=== PATIENT | male | born 1965 | race Caucasian/White ===

== ENCOUNTER 2016-06-27 17:37 | Emergency (ER) | payer OTHER ==
[2016-06-27 18:28] LABS: BASOPHIL 0.1 % (0-2); EOSINOPHIL 0 % (0-5); HCT 40.6 % (42.0-52.0); HGB 14.4 g/dl (13.2-18.0); LYMPHOCYTE 6.9 % (15-48); MCH 28.7 pg (25.0-31.0); MCHC 35.5 g/dL (32.0-36.0); MONOCYTE 8.2 % (0-12); MPV 10.5 fL (6.0-9.5); NEUTROPHIL 84.8 % (41-80); PLT 282 K/uL (150-400); RBC 5.01 M/uL (4.70-6.00); WBC 11.7 K/uL (4.0-10.5)
[2016-06-27 18:46] LABS: INR 1.18 (0.9-1.2); PROTHROMBIN TIME 14.6 SECONDS (11.7-14.0); PTT 45.6 SECONDS (23.2-31.4)
[2016-06-27 18:48] LABS: ALBUMIN 3.9 g/dL (3.5-5.0); BILIRUBIN - TOTAL 1.1 mg/dL (0.1-1.0); CREATININE 1.1 mg/dL (0.7-1.2); GLOBULIN (CALCULATION) 4.1 g/dL (2.2-4.2)
[2016-06-27 23:48] LABS: BILIRUBIN 1+ mg/dL (NEGATIVE); BLOOD 1+ Ery/uL (NEGATIVE); CLARITY CLEAR (CLEAR); COLOR YELLOW (YELLOW); GLUCOSE (U) 2+ mg/dL (NORMAL); KETONE (U) 2+ (MODERATE) mg/dL (NEGATIVE); LEUKOCYTES NEGATIVE Leu/uL (NEGATIVE); NITRITE NEGATIVE (NEGATIVE); PROTEIN 2+ mg/dL (NEGATIVE); SPECIFIC GRAVITY 1.025 (1.001-1.030)
[2016-06-27 23:54] LABS: BACTERIA TRACE; MUCOUS MODERATE
== END 2016-06-28 00:48 | disposition home or self-care (01) ==
LOC: FER 17:37
PROVIDERS: Emergency Medicine
DX: J18.9 Pneumonia, unspecified organism (principal); E11.9 Type 2 diabetes mellitus without complications; Z84.89 Family history of other specified conditions; Z79.899 Other long term (current) drug therapy
CPT/HCPCS: 36415; 71250; 74000; 80053; 81001; 82150; 83690; 85025; 85610; 85730; 86850; 86900; 86901; 87040; 93005; J1956; J2405; Q9967